=== PATIENT | male | born 1985 | race Caucasian/White ===

== ENCOUNTER 2020-12-13 20:18 | Emergency (ER) | payer SELFPAY ==
[2020-12-13 20:27] VITALS: BP 124/89; PULSE 122; RESP 18; TEMP 37.1; O2SAT 98; BMI 27.6
--- NOTE | 2020-12-13 20:29 | XR_ITS ---
WS: [id number] Exam: XR chest 1V portable [id number] Date/Time of Exam: 12/13/2020 8:29 PM Reason For Exam: altered mental status Findings: The lungs are clear and fully expanded. Costophrenic angles are sharp. No infiltrates. Bronchovascula r relief appears normal. Cardiac silhouette is unremarkable. Bony elements are intact. XR/XR chest 1V portable [id number] IMPRESSION: Unremarkable chest radiograph.
--- NOTE | 2020-12-13 20:29 | CTR_ITS ---
PROCEDURE INFORMATION: Exam: CT Head Without Contrast Exam date and time: 12/13/2020 8:32 PM Age: 35 years old Clinical indication: Altered mental status/memory loss and speech disturbance; Confusion or disorientation; Patient HX: AMS - slurred speech TECHNIQUE: Imaging protocol: Computed tomography of the head without contrast. Radiation optimization: All CT scans at this facility use at least one of these dose optimization techniques: automated exposure control; mA and/or kV adjustment per patient size (includes targeted exams where dose is matched to clinical indication); or iterative reconstruction. Other technique: STROKE PROTOCOL was implemented. COMPARISON: No relevant prior studies available. RADIATION DOSE METRICS: Total DLP (mGy-cm): 907.53 FINDINGS: Brain: Normal. No hemorrhage. Unremarkable white matter. No mass effect. Cerebral ventricles: No ventriculomegaly. Bones/joints: Unremarkable. No acute fracture. Paranasal sinuses: Visualized sinuses are unremarkable. No fluid levels. Mastoid air cells: Visualized mastoid air cells are well aerated. Soft tissues: Unremarkable. CT/CT head wo con* [id number] IMPRESSION: No acute finding. ASSESSMENT: ASPECTS (More Stroke Program Early CT Score) is 10. Radiation Dose CTDIVOL = (mGy): DLP = 907.53 (mGy-cm)
--- NOTE | 2020-12-13 20:31 | ECG_ITS ---
[facility] Test Date: 2020-12-13 Pat Name: FIOR CHAVARRIA Department: Room: Gender: Male Senior Sas Developer: : 1985 Requested By: Lb Pedraza Order Number: [id number] [place] MD: Lanie Og M.D. Measurements Intervals [place] Rate: 102 P: 18 AR: 140 QRS: 52 QRSD: 81 T: 20 QT: 359 QTc: 469 Interpretive Statements SINUS TACHYCARDIA ABNORMAL RHYTHM ECG No previous ECG available for comparison Electronically Signed On 12-14-2020 12:42:20 CALL CENTER TEAM LEADER by Lanie Og M.D. [id number]
[2020-12-13 20:43] VITALS: BP 136/83; PULSE 117; RESP 18; O2SAT 96
[2020-12-13 20:45] LABS: Basophils % 0.4 %; Eosinophils # 0.2 10^3/uL (0.0-0.8); Eosinophils % 2.7 %; Hematocrit 41.1 % (42.0-52.0); Hemoglobin 13.6 g/dL (11.7-16.6); Lymphocytes # 2.5 10^3/uL (0.8-4.8); Lymphocytes % 44.6 %; Mean Corpuscular HGB Conc 33.1 g/dL (30.0-36.0); Mean Corpuscular Hemoglobin 29.7 pg (28.0-34.0); Mean Corpuscular Volume 89.7 fL (80-94); Mean Platelet Volume 10.9 fL (7.4-10.4); Monocytes # 0.8 10^3/uL (0.2-0.9); Monocytes % 14.6 %; Neutrophils # 2.07 10^3/uL (1.8-7.7); Neutrophils % 37.3 %; Nucleated Red Blood Cells % 0 %; Platelet Count 239 10^3/cmm (130-400); Red Blood Count 4.58 10^6/uL (4.1-5.3); Red Cell Distribution Width 11.9 % (12.1-15.1); White Blood Count 5.5 10^3/uL (4.0-10.0)
[2020-12-13] MEDS: sodium chloride 0.9% 1,000 ML 999 ML IV (20:46)
[2020-12-13 20:57] LABS: Alanine Aminotransferase 12 U/L (0-41); Albumin Level 3.9 g/dL (3.5-5.2); Alkaline Phosphatase 84 IU/L (40-130); Anion Gap 15.9 (5-19); Aspartate Amino Transferase 11 U/L (0-40); Blood Urea Nitrogen 10 mg/dL (6-20); Calcium 8.6 mg/dL (8.5-10.5); Carbon Dioxide 26 mmol/L (22-29); Chloride 106 mmol/L (98-107); Globulin 2.6 g/dL (1.3-4.6); Glomerular Filtration Rate 126.9 mL/min (90-130); Glucose 94 mg/dL (65-115); Osmolality Calculated 297 mOsm/kg (285-295); Potassium 3.9 mmol/L (3.5-5.1); Sodium 144 mmol/L (136-145); Total Bilirubin 0.6 mg/dL (0.15-1.2); Total Protein 6.5 g/dL (6.6-8.7)
[2020-12-13 20:59] LABS: Troponin(5th) Baseline 6 ng/L (0-15)
--- NOTE | 2020-12-13 21:03 | CTR_ITS ---
PROCEDURE INFORMATION: Exam: CT Angiography Head With Contrast Exam date and time: 12/13/2020 9:27 PM Age: 35 years old Clinical indication: Speech disturbance; Patient HX: CHAU w slurred speech; Additional info: Altered mental status TECHNIQUE: Imaging protocol: Computed tomography angiography of the head with intravenous contrast. 3D rendering (Not supervised by radiologist): MIP and/or 3D reconstructed images were created by the technologist. Radiation optimization: All CT scans at this facility use at least one of these dose optimization techniques: automated exposure control; mA and/or kV adjustment per patient size (includes targeted exams where dose is matched to clinical indication); or iterative reconstruction. Contrast material: OMNI 350; Contrast volume: 95 ml; Contrast route: INTRAVENOUS (IV); COMPARISON: CT head wo con* [id number] 12/13/2020 8:31 PM RADIATION DOSE METRICS: Total DLP (mGy-cm): 1956.96 FINDINGS: ANTERIOR CIRCULATION: Right internal carotid artery: Unremarkable. Intracranial segment is patent with no significant stenosis. No aneurysm. Right middle cerebral artery: Unremarkable. No occlusion or significant stenosis. No aneurysm. Right anterior cerebral artery: Unremarkable. No occlusion or significant stenosis. No aneurysm. Left internal carotid artery: Unremarkable. Intracranial segment is patent with no significant stenosis. No aneurysm. Left middle cerebral artery: Unremarkable. No occlusion or significant stenosis. No aneurysm. Left anterior cerebral artery: Unremarkable. No occlusion or significant stenosis. No aneurysm. POSTERIOR CIRCULATION: Right vertebral artery: Unremarkable. No occlusion or significant stenosis. No aneurysm. Left vertebral artery: Unremarkable. No occlusion or significant stenosis. No aneurysm. Basilar artery: Unremarkable. No occlusion or significant stenosis. No aneurysm. Right posterior cerebral artery: Unremarkable. No occlusion or significant stenosis. No aneurysm. Left posterior cerebral artery: The left P1 posterior cerebral artery segment is smaller than normal and there is origin of the left posterior cerebral artery. Brain: No definite mass, mass effect, or midline shift. Cerebral ventricles: No ventriculomegaly. Bones/joints: Unremarkable. No acute fracture. Soft tissues: Unremarkable. IMPRESSION: There is no major vascular occlusion or intracranial aneurysm identified. PROCEDURE INFORMATION: Exam: CT Angiography Neck With Contrast Exam date and time: 12/13/2020 9:27 PM Age: 35 years old Clinical indication: Speech disturbance; Patient HX: AMS w slurred speech; Additional info: Altered mental status TECHNIQUE: Imaging protocol: Computed tomography angiography of the neck with intravenous contrast. 3D rendering (Not supervised by radiologist): MIP and/or 3D reconstructed images were created by the technologist. Radiation optimization: All CT scans at this facility use at least one of these dose optimization techniques: automated exposure control; mA and/or kV adjustment per patient size (includes targeted exams where dose is matched to clinical indication); or iterative reconstruction. Contrast material: OMNI 350; Contrast volume: 95 ml; Contrast route: INTRAVENOUS (IV); COMPARISON: CT head wo con* [id number] 12/13/2020 8:31 PM RADIATION DOSE METRICS: Total DLP (mGy-cm): 1956.96 FINDINGS: Right common carotid artery: No stenosis. No dissection or occlusion. Right internal carotid artery: Right internal carotid artery is very tortuous but there is no evidence for stenosis. Right external carotid artery: No occlusion or stenosis of the origin. Right vertebral artery: No stenosis. No dissection or occlusion. Left common carotid artery: No stenosis. No dissection or occlusion. Left internal carotid artery: There is moderately tortuous left internal carotid artery but there is no evidence for stenosis. Left external carotid artery: No occlusion or stenosis of the origin. Left vertebral artery: No stenosis. No dissection or occlusion. Bones/joints: No acute fracture. Soft tissues: Normal. No significant soft tissue swelling. CT/CT angio headneck* [id number] IMPRESSION: There is no evidence of stenosis or occlusion in the carotid or internal carotid arteries on either side of the neck. REFERENCES: NASCET CRITERIA. The degree of internal carotid artery stenosis is based on NASCET criteria. Normal is no stenosis. Mild is less than 50% stenosis. Moderate is 50-69% stenosis. Severe is 70% to 99% stenosis. Total occlusion is no detectable patent lumen. Radiation Dose CTDIVOL = (mGy): DLP = 1956.96~1956.96 (mGy-cm)
[2020-12-13 21:05] VITALS: BP 124/83; PULSE 112; RESP 18; O2SAT 98
[2020-12-13 21:08] LABS: Alcohol Level < 10 mg/dL (0-10)
[2020-12-13 21:21] LABS: INR 0.91 (0.8-1.2)
[2020-12-13 21:22] LABS: Partial Thromboplastin Time 40.7 SECONDS (23.9-36.7)
--- NOTE | 2020-12-13 21:32 | W.ED.AMS ---
HPI - Altered Mental Status General: Chief Complaint: Altered Mental Status Stated Complaint: POSSIBLE STROKE Time Seen by Provider: 12/13/20 20:29 History of Present Illness: HPI narrative: The patient is a 35-year-old male who comes in with strokelike symptoms from EMS. On arrival the patient has no focal weakness but does have uncoordination, inattention, and trouble finding words. He is slow with his responses as well. He was taken straight to head CT which was normal. In the room he was found to be in sinus tachycardia at 122 bpm. Labs and fluids were started. He began to become more responsive and able to answer some questions appropriately. Staff while handling his belongings noted an empty syringe with some blood on it, a tourniquet, and an alcohol swab. When asked the patient said that it was for insulin. He denies drugs and alcohol. His significant other arrived and noted he does not take insulin. The patient reports he does take Ozempic for his diabetes which is a weekly autoinjector pen. His heart rate began to improve with the fluids and as time goes on his mental status is also improving though still slightly uncoordinated. Discussed the case with Dr. Maldonado who recommended to give Narcan to see if that would improve his uncoordination. I told the patient I was going to give him Narcan and he declined the medication because of the side effects of nausea and vomiting. The patient significant other reports that around 6:30 PM he began to have difficulty walking and talking and he started falling down. The symptoms only worsened and she attempted to drive him to the ER for evaluation but she could not pick him up off the ground so called 911. complaint: altered mental status Time: 06:30 Timing confirmed by: other (Significant other) Associated symptoms: Deny depression Review of Systems General: Reports: 10 or more systems reviewed and unremarkable except in HPI and below Const: Denies: fatigue Eyes: Denies: change in vision, blurry vision or eye redness ENMT: Denies: throat pain, swelling of lips/tongue, ear or mastoid pain or nasal congestion Card: Denies: chest pain, palpitations, irregular heart rhythm, edema, dyspnea on exertion or orthopnea Resp: Denies: dyspnea, productive cough or non-productive cough GI: Denies: abdominal pain, diarrhea or GI cramping : Denies: flank pain, urinary frequency or urinary urgency Musc: Denies: neck pain, back pain, extremity pain, joint pain, joint redness, limited range of motion or muscle weakness Skin/Breast: Denies: rash, pruritus, erythema, skin pain or skin tenderness Neuro: Reports: lack of coordination, difficulty walking, frequent falls and behavioral changes; Denies: headache(s), numbness in extremities, weakness in extremities, sensory changes, dizziness, confusion or Slurred speech present Psych: Denies: anxiety or depression Endo: Denies: polyuria All/Imm: Denies: urticaria, throat swelling or tongue swelling Physical Exam Const: COMMON NORMALS: alert EXAM LIMITATIONS: altered mental status and physical limitations GENERAL APPEARANCE: well developed ORIENTATION/CONSCIOUSNESS: Yes awake, Yes oriented to person, Yes oriented to place and Yes confused HENMT: COMMON NORMALS: normocephalic, external ears normal and Normal external nose present HEAD & SCALP: normal to inspection and normocephalic NOSE: Normal external nose present EXTERNAL EAR: Yes external ears normal MOUTH: Normal oral and palatal mucosa present THROAT: posterior oropharynx normal Eye: COMMON NORMALS: Equal, round and reactive pupils present and EOMs intact bilaterally GENERAL EYE: appearance normal, both eyes and all related structures PUPIL: Yes Equal, round and reactive pupils present Neck/C-Spine: COMMON NORMALS: full ROM, no lymphadenopathy, no meningeal signs and no JVD GENERAL: Yes normal visual inspection Lymph: LYMPHATIC: no lymphadenopathy noted Chest: COMMONS NORMALS: normal inspection of the chest and normal palpation of entire chest wall Resp: COMMON NORMALS: normal respiratory effort, No retractions, No use of accessory muscles, clear to auscultation bilaterally and percussion normal EFFORT & INSPECTION: Yes able to speak in complete sentences AUSCULTATION: clear to auscultation bilaterally PERCUSSION: percussion normal Cardio: COMMON NORMALS: no JVD, regular rhythm, S1 normal heart sound present, S2 normal heart sound present and Peripheral pulses 2+ throughout RATE: tachycardic (Sinus tachycardia rate 120s) RHYTHM: regular rhythm HEART SOUNDS: S1 normal heart sound present and S2 normal heart sound present PERIPHERAL PULSES: Peripheral pulses 2+ throughout GI: COMMON NORMALS: Normal to inspection, nondistended, normoactive bowel sounds present, Soft to palpation, non-tender and no masses INSPECTION: Yes normal to inspection PALPATION: Yes Soft to palpation : COMMON NORMALS: Yes no CVA tenderness BLADDER/KIDNEY EXAM: Yes no CVA tenderness Back/Pelvis: COMMON NORMALS: no CVA tenderness, thoracic and lumbar spine normal to inspection, no thoracic nor lumbar tenderness and thoraco-lumbar ROM normal Extremity: COMMON NORMALS: normal to inspection, full ROM, capillary refill normal, no joint enlargement and no pedal edema GENERAL: Yes normal exam except as noted Neuro: DEYANIRA COMA SCALE: document GCS findings [place] coma scale eye opening: Spontaneous [place] coma scale verbal response: Confused Deyanira coma scale motor response: Obey commands Deyanira coma scale total score: 14 COMMON NORMALS: moves all extremities, no focal motor deficits and no sensory deficits noted SENSORIUM/ORIENTATION: Yes alert, Yes oriented to person, Yes oriented to place and Yes fluctuating sensorium MENINGEAL SIGNS: Yes no meningeal signs CRANIAL NERVES: Yes CN normal except as noted SPEECH: abnormal speech (Responds slowly to questions and confused) GAIT: Yes Unable to assess gait and Yes Other gait observations present (Lack of coordination with extremities on arrival) MOTOR EXAM: 5/5 motor strength present throughout and Normal motor muscle tone present throughout Psych: ATTENTION/CONCENTRATION: Yes concentration grossly intact and Yes concentration grossly impaired MEMORY/COGNITION: Yes memory grossly intact and Yes cognition grossly intact OTHER: Denies suicidal ideation Skin: COMMON NORMALS: no rashes or lesions noted GENERAL SKIN EXAM: no rashes or lesions noted Course Vital Signs: Vital signs: Vital Signs Temperature 98.7 F 12/13/20 20:27 Pulse Rate 107 H 12/13/20 21:35 Respiratory Rate 18 12/13/20 21:35 Blood Pressure 117/82 12/13/20 21:35 Pulse Oximetry 97 12/13/20 21:35 MDM - Altered Mental Status MDM Narrative: Medical decision making narrative: Mr. Manley arrived slowly answering questions, uncoordinated in all extremities, and slightly stuporous as if intoxicated. Additionally a syringe and tourniquet was found in his jacket which was empty. He denied many times drug and alcohol use. He did not give us a sample of urine while he was here. Alcohol was negative. He was initially treated like a stroke and Dr. Maldonado was involved who did not feel this was a stroke and recommended Narcan. I offered the patient Narcan and he refused due to the side effects. Overall his testing was completely normal including CT and CT angiogram of head and neck. He was given IV fluids. Over the course of a couple hours his mental status grossly improved and he was alert and oriented x4 talking normally and able to walk well. He asked to leave. I recommended he stay observation overnight as he has had some neurologic symptoms which cannot be easily explained as he is denying drug use. Recommended he stay overnight observation or risk return of the neuro symptoms. He refused to stay and signed AGAINST MEDICAL ADVICE and left on his own will. Lab Data: Labs: Lab Results 12/13/20 12/13/20 12/13/20 Range/Units 20:01 20:01 20:01 WBC 5.5 (4.0-10.0) 10^3/ uL RBC 4.58 (4.1-5.3) 10^6/u L Hgb 13.6 (11.7-16.6) g/dL Hct 41.1 L (42.0-52.0) % MCV 89.7 (80-94) fL MCH 29.7 (28.0-34.0) pg MCHC 33.1 (30.0-36.0) g/dL RDW 11.9 L (12.1-15.1) % Plt Count 239 (130-400) 10^3/c mm MPV 10.9 H (7.4-10.4) fL Neut % (Auto) 37.3 % Lymph % (Auto) 44.6 % Nuckolls % (Auto) 14.6 % Eos % (Auto) 2.7 % Baso % (Auto) 0.4 % Neut # (Auto) 2.07 (1.8-7.7) 10^3/u L Lymph # (Auto) 2.5 (0.8-4.8) 10^3/u L [place]oll[place] # (Auto) 0.8 (0.2-0.9) 10^3/u L Eos # (Auto) 0.2 (0.0-0.8) 10^3/u L Baso # (Auto) 0.0 (0.0-0.1) 10^3/u L Nucleated RBC % (a uto) 0 % Nucleated RBCs # 0.0 /100WBC PT (12.1-14.9) SECO NDS INR (0.8-1.2) APTT (23.9-36.7) SECO NDS Sodium 144 (136-145) mmol/L Potassium 3.9 (3.5-5.1) mmol/L Chloride 106 (98-107) mmol/L Carbon Dioxide 26 (22-29) mmol/L Anion Gap 15.9 (5-19) BUN 10 (6-20) mg/dL Creatinine 0.7 (0.7-1.2) mg/dL GFR Calculation 126.9 (90-130) mL/min Glucose 94 (65-115) mg/dL Calculated Osmolal ity 297 H (285-295) mOsm/k g Lactate 2.1 (0.5-2.2) mmol/L Calcium 8.6 (8.5-10.5) mg/dL Total Bilirubin 0.6 (0.15-1.2) mg/dL AST 11 (0-40) U/L ALT 12 (0-41) U/L Alkaline Phosphata se 84 (40-130) IU/L Troponin T Baselin e (0-15) ng/L Total Protein 6.5 L (6.6-8.7) g/dL Albumin 3.9 (3.5-5.2) g/dL Globulin 2.6 (1.3-4.6) g/dL Ethyl Alcohol < 10 (0-10) mg/dL 12/13/20 12/13/20 Range/Units 20:01 20:57 WBC (4.0-10.0) 10^3/ uL RBC (4.1-5.3) 10^6/u L Hgb (11.7-16.6) g/dL Hct (42.0-52.0) % MCV (80-94) fL MCH (28.0-34.0) pg MCHC (30.0-36.0) g/dL RDW (12.1-15.1) % Plt Count (130-400) 10^3/c mm MPV (7.4-10.4) fL Neut % (Auto) % Lymph % (Auto) % [place] % (Auto) % Eos % (Auto) % Baso % (Auto) % Neut # (Auto) (1.8-7.7) 10^3/u L Lymph # (Auto) (0.8-4.8) 10^3/u L [place] # (Auto) (0.2-0.9) 10^3/u L Eos # (Auto) (0.0-0.8) 10^3/u L Baso # (Auto) (0.0-0.1) 10^3/u L Nucleated RBC % (a uto) % Nucleated RBCs # /100WBC PT 12.60 (12.1-14.9) SECO NDS INR 0.91 (0.8-1.2) APTT 40.7 H (23.9-36.7) SECO NDS Sodium (136-145) mmol/L Potassium (3.5-5.1) mmol/L Chloride (98-107) mmol/L Carbon Dioxide (22-29) mmol/L Anion Gap (5-19) BUN (6-20) mg/dL Creatinine (0.7-1.2) mg/dL GFR Calculation (90-130) mL/min Glucose (65-115) mg/dL Calculated Osmolal ity (285-295) mOsm/k g Lactate (0.5-2.2) mmol/L Calcium (8.5-10.5) mg/dL Total Bilirubin (0.15-1.2) mg/dL AST (0-40) U/L ALT (0-41) U/L Alkaline Phosphata se (40-130) IU/L Troponin T Baselin e 6 (0-15) ng/L Total Protein (6.6-8.7) g/dL Albumin (3.5-5.2) g/dL Globulin (1.3-4.6) g/dL Ethyl Alcohol (0-10) mg/dL Discharge Plan Discharge Patient Disposition: Left Against Medical Advice Clinical Impression: Altered mental status Condition: Fair Coding Level of Care Code ED Fire Investigation Manager for Madiha Nuno
[2020-12-13 21:34] LABS: Lactate (Lactic Acid level) 2.1 mmol/L (0.5-2.2)
[2020-12-13 21:35] VITALS: BP 117/82; PULSE 107; RESP 18; O2SAT 97
[2020-12-13] MEDS: iohexol 350 mg/mL 100 mL Btl IV (21:43)
[2020-12-13 22:20] VITALS: BP 101/62; PULSE 105; RESP 18; O2SAT 95
== END 2020-12-13 22:29 | disposition left against medical advice (07) ==
PROVIDERS: Emergency Provider Family Medicine
DX: R41.82 Altered mental status, unspecified (principal); Z53.21 Procedure and treatment not carried out due to patient leaving prior to being seen by health care provider
CPT/HCPCS: 36415; 70450; 70496; 70498; 71045; 80053; 80307; 83605; 84484; 85025; 85610; 85730; 93005; 96360; 99284; J7030; Q9967